=== PATIENT | male | born 1970 | race Asian ===

== ENCOUNTER 2022-10-01 13:26 | Emergency (ER) | payer OTHER ==
[~2022-10-01] VITALS: Ht 162.6 cm; Wt 63.5 kg
[2022-10-01 13:27] VITALS: BP 132/74
[2022-10-01] MEDS: KETOROLAC 30 MG/ML VIAL IM ONE ×2 (14:00→14:01)
--- NOTE | 2022-10-01 14:20 | NUR ---
PT TO ER BED 8 VIA W/C
--- NOTE | 2022-10-01 14:25 | NUR ---
52 y/o male biba for low back pain x today. Per patient, he was running and fell down. Patient is drowzy but arousable and admits to using "crystal" today. Denies taking any medication for pain. Medical History: Denies NKDA
--- NOTE | 2022-10-01 14:50 | NUR ---
SPEEDY Aguilar evaluating patient at bedside.
--- NOTE | 2022-10-01 16:22 | NUR ---
Patient was offered snacks.
[2022-10-01] MEDS ORDERED: LID5T TP (17:15)
[2022-10-01] MEDS ORDERED: IBUP-2213 PO (17:15)
[2022-10-01 17:39] VITALS: BP 112/67
--- NOTE | 2022-10-01 17:39 | NUR ---
Patient discharged with v/s stable. Written and verbal after care instructions given. Patient alert, oriented and verbalized understanding of instructions. Ambulatory with steady gait. All questions addressed prior to discharge. ID band removed. Patient advised to follow up with PMD. Rx of Ibuprofen and Lidoderm given. Opportunity to ask questions provided and answered.
--- NOTE | 2022-10-01 17:51 | NUR ---
The patient's care was reviewed and supervised by ED Agency Nurse 8, RN, RN.
[2022-10-02] MEDS ORDERED: PSYL0.4C2 PO (15:15)
== END 2022-10-01 17:39 | disposition home or self-care (01) ==
LOC: MED 13:26
DX: S33.5XXA Sprain of ligaments of lumbar spine, initial encounter (principal); X58.XXXA Exposure to other specified factors, initial encounter; Y93.89 Activity, other specified; Y92.89 Other specified places as the place of occurrence of the external cause; Y99.8 Other external cause status
CPT/HCPCS: 81002; 96372; 99284; J1885

== ENCOUNTER 2022-10-02 12:48 | Emergency (ER) | payer OTHER ==
[~2022-10-02] VITALS: Ht 162.6 cm; Wt 63.5 kg
[~2022-10-02 12:48] MED LIST: IBUP-2213 PO; LID5T TP
--- NOTE | 2022-10-02 12:50 | NUR ---
PATIENT TO LOBBY
[2022-10-02 12:52] VITALS: BP 105/59
--- NOTE | 2022-10-02 13:20 | NUR ---
52/M BIBA FROM C/O UPPER BACK S/P FALL YESTERDAY. STATES 10 AT THIS TIME. RANGE OF MOTION INTACT, AMBULATORY, VITALS STABLE. PT WAS SEEN TODAY FOR SAME S/SX YESTERDAY. pmh: vera negron med: [facility]
[2022-10-02] MEDS ORDERED: PSYL0.4C2 PO (15:15)
--- NOTE | 2022-10-02 15:50 | NUR ---
Patient discharged with v/s stable. Written and verbal after care instructions given and explained. Patient alert, oriented and verbalized understanding of instructions. Ambulatory with steady gait. All questions addressed prior to discharge. ID band removed. Patient advised to follow up with PMD.Patient educated on indication of medication including possible reaction and side effects. Opportunity to ask questions provided and answered.
== END 2022-10-02 15:50 | disposition home or self-care (01) ==
LOC: MED 12:48
DX: S30.0XXA Contusion of lower back and pelvis, initial encounter (principal); K59.00 Constipation, unspecified; M25.511 Pain in right shoulder; Z79.899 Other long term (current) drug therapy; Z59.00 Homelessness unspecified; W19.XXXA Unspecified fall, initial encounter; Y93.89 Activity, other specified; Y92.89 Other specified places as the place of occurrence of the external cause; Y99.8 Other external cause status
CPT/HCPCS: 99283